=== PATIENT | female | born 1985 | race American Indian/Alaskan Native ===

== ENCOUNTER 2017-10-17 16:08 | Emergency (ER) | payer MEDICAID ==
[2017-10-17 16:45] VITALS: BP 131/82
--- NOTE | 2017-10-17 19:33 | Emergency Department Report ---
ED General Adult HPI - General Chief complaint: Dental/Oral Stated complaint: LIP PIERCING NEED TO BE REMOVED Time Seen by Provider: 10/17/17 19:28 Source: patient Mode of arrival: Ambulatory Limitations: No Limitations - History of Present Illness Initial comments: 31-year-old -I[place]ian female presents to the emergency room reporting that her lip piercing niece to be removed. Patient reports that the [place] has rotated to the end of her skin and is causing her to be in pain. Patient denies any fever or chills or nausea no vomiting. Patient is requesting forced to remove the piercing. Patient has no past medical history currently takes no medications on a daily basis and reports that the W[place]ell just started up turning upside down 1 week. -: week(s) (1) Location: face Severity scale (0 -10): 1 Consistency: constant Improves with: none Associated Symptoms: denies other symptoms - Related Data Previous Rx's Medication Instructions Recorded Last Taken Type Prednisone [Prednisone 10 mg 10 mg PO .TAPER #1 tab.ds.pk 01/02/14 Unknown Rx (6-Day Pack, 21 Tabs)] Promethazine /Codeine 5 ml PO Q6H PRN #120 udc 01/02/14 Unknown Rx [Phenergan/Codeine 6.25-10 mg/5 ml] HYDROcodone/APAP 10-325 [[place] 1 each PO Q4-6H PRN #20 tablet 10/02/14 Unknown Rx 10/325] Sulfamethoxazole/Trimethoprim 1 each PO Q12H #20 tablet 10/02/14 Unknown Rx [Bactrim Ds] metroNIDAZOLE [Flagyl] 500 mg PO Q8H #21 tablet 10/02/14 Unknown Rx Amoxicillin 500 mg PO BID #20 capsule 02/26/16 Unknown Rx Ibuprofen [Motrin] 800 mg PO Q8HR PRN #30 tablet 02/26/16 Unknown Rx Cephalexin [Keflex] 500 mg PO BID 3 Days #6 capsule 10/17/17 Unknown Rx Allergies Allergy/AdvReac Type Severity Reaction Status Date / Time No Known Allergies Allergy Unverified 01/02/14 09:30 ED Review of Systems ROS: Stated complaint: LIP PIERCING NEED TO BE REMOVED Other details as noted in HPI Skin: other (piercing malfunction) ED Past Medical Hx - Past Medical History Hx Asthma: Yes Additional medical history: Bartholin's cyst - Surgical History Past Surgical History?: No - Social History Smoking Status: Never Smoker - Medications Home Medications: Home Medications Medication Instructions Recorded Confirmed Last Taken Type Prednisone [Prednisone 10 mg 10 mg PO .TAPER #1 tab.ds.pk 01/02/14 Unknown Rx (6-Day Pack, 21 Tabs)] Promethazine /Codeine 5 ml PO Q6H PRN #120 udc 01/02/14 Unknown Rx [Phenergan/Codeine 6.25-10 mg/5 ml] HYDROcodone/APAP 10-325 [[place] 1 each PO Q4-6H PRN #20 tablet 10/02/14 Unknown Rx 10/325] Sulfamethoxazole/Trimethoprim 1 each PO Q12H #20 tablet 10/02/14 Unknown Rx [Bactrim Ds] metroNIDAZOLE [Flagyl] 500 mg PO Q8H #21 tablet 10/02/14 Unknown Rx Amoxicillin 500 mg PO BID #20 capsule 02/26/16 Unknown Rx Ibuprofen [Motrin] 800 mg PO Q8HR PRN #30 tablet 02/26/16 Unknown Rx Cephalexin [Keflex] 500 mg PO BID 3 Days #6 capsule 10/17/17 Unknown Rx ED Physical Exam - General Limitations: No Limitations General appearance: alert, in no apparent distress - Neurological Exam Neurological exam: Present: alert, oriented X3 - Psychiatric Psychiatric exam: Present: normal affect, normal mood - Skin Skin exam: Present: other (piercing to above the right lip protruding now crustacean) ED Course Vital Signs 10/17/17 16:41 Temperature 98 F Pulse Rate 80 Respiratory 16 Rate Blood Pressure 131/82 O2 Sat by Pulse 98 Oximetry - Procedure Description Procedures done: Removal of piercing to the lip. Still piercing removed from face just above the right lip with a 11 blade scalpel. The patient's face was cleaned with Betadine and numbed with lidocaine 2% with 1 mL of lidocaine. 11 blade was used to sridhar decide to remove the piercing. Apply pressure to control bleeding Band-Aid sterile applied. Patient tolerated procedure well ED Medical Decision Making - Medical Decision Making Patient has been evaluated by this provider fast track. Removal of foreign body from face Discussed the patient I'll place her on 3 days worth of antibiotics This patient she needs to continue with the little pressure Band-Aid If any signs of infection such as purulent discharge fever swelling patient is returned back to the emergency room. Critical care attestation.: If time is entered above; I have spent that time in minutes in the direct care of this critically ill patient, excluding procedure time. ED Disposition Clinical Impression: Piercing, Foreign body (FB) in soft tissue Disposition: DC-01 TO HOME OR SELFCARE Is pt being admited?: No Does the pt Need Aspirin: No Condition: Stable Additional Instructions: Please complete antibiotics as prescribed. Please continue applying pressure to the area. You can take Tylenol or Motrin for pain. Return back to the emergency room if there is any signs of infection such as spiking of a fever purulent discharge swelling. Prescriptions: Cephalexin [Keflex] 500 mg PO BID 3 Days #6 capsule Referrals: PRIMARY CARE, [Primary Care Provider] - 3-5 Days Forms: Work/School Release Form(ED)
== END 2017-10-17 19:45 | disposition home or self-care (01) ==
LOC: ED 16:08
DX: S00.551A Superficial foreign body of lip, initial encounter (principal); J45.909 Unspecified asthma, uncomplicated; X58.XXXA Exposure to other specified factors, initial encounter; Y93.89 Activity, other specified; Y92.89 Other specified places as the place of occurrence of the external cause; Y99.8 Other external cause status
CPT/HCPCS: 99282

== ENCOUNTER 2018-10-29 10:31 | Day surgery (SDC) | payer OTHER ==
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
--- NOTE | 2018-10-29 11:14 | Anesthesia Day of Surgery ---
Anesthesia Day of Surgery - Day of Surgery Patient Examined: Yes Patient H&P Reviewed: Yes Patient is NPO: Yes
[2018-10-29] MEDS ORDERED: TYLENOL PO SCH (11:15)
[2018-10-29] MEDS ORDERED: SUBLIMAZE IV PRN (11:15)
[2018-10-29] MEDS ORDERED: ZOFRAN IV PRN (11:15)
[2018-10-29] MEDS ORDERED: NEURONTIN PO NR (12:00)
[2018-10-29] MEDS ORDERED: LACTATED RINGERS 1,000 ML IV SCH (12:00)
[2018-10-29] MEDS ORDERED: ZOFRAN ONE (13:00)
[2018-10-29] MEDS ORDERED: DIPRIVAN 10 MG/ML IV ONE (13:00)
[2018-10-29] MEDS ORDERED: DECADRON ONE (13:00)
[2018-10-29] MEDS ORDERED: SUBLIMAZE ONE (13:02)
--- NOTE | 2018-10-29 13:12 | Short Stay Summary ---
Short Stay Documentation Date of service: 10/29/18 Narrative H&P: Ms Parker is a 33-year-old black female LMP 10/10/2018 who presents for marsupialization of recurrent left Bartholin cyst. She has had the same Bartholin cyst drained at least 6 times, and now desires complete removal of the Bartholin gland. - History Principal diagnosis: Left Bartholin cyst H&P: obtained from office Past Medical History: hypertension, other (Bipolar disorder; Asthma) Social history: no significant social history, single - Allergies and Medications Current Medications: Allergies STEROIDS Allergy (Uncoded 10/28/18 15:08) Swelling Home Medications Medication Instructions Recorded Confirmed Last Taken Type Albuterol Sulfate [Albuterol 0.63% 0.63 mg IH TID PRN 10/28/18 10/28/18 Unknown History NEBS] Albuterol Sulfate [Proventil Hfa] 2 puff IH PRN PRN 10/28/18 10/28/18 Unknown History Active Medications Acetaminophen (Tylenol) 650 mg PO ONCE REBECCA Stop: 10/29/18 23:00 Celecoxib (Celebrex) 200 mg PO PREOP NR Stop: 10/29/18 23:01 Fentanyl (Sublimaze) 50 mcg IV Q5MIN PRN PRN Reason: Pain , Severe (7-10) Stop: 10/29/18 23:00 Gabapentin (Neurontin) 300 mg PO PREOP NR Stop: 10/29/18 23:00 Lactated Ringer's (Lactated Ringers) 1,000 mls @ 125 mls/hr IV DIRECT REBECCA Ondansetron HCl (Zofran) 4 mg IV ONCE PRN PRN Reason: Nausea And Vomiting - Physical exam General appearance: no acute distress Integumentary: no rash HEENT: Atraumatic Lungs: Clear to auscultation Breasts: deferred Heart: Regular rate Gastrointestinal: normal Female Genitourinary: lesions (Left Bartholin cyst) Rectal Exam: deferred Extremities: no ischemia, No edema Neurological: Normal gait, Normal speech - Brief post op/procedure progress note Date of procedure: 10/29/18 Pre-op diagnosis: Recurrent left Bartholin cyst Post-op diagnosis: same Procedure: Marsupialization of left Bartholin's gland Anesthesia: MAC Findings: A 3 x 3 cm left Bartholin gland -removed in this entirety Surgeon: KUN PADILLA Estimated blood loss: 50-100ml Pathology: list (left Bartholin's gland) Specimen disposition: to lab Condition: stable - Hospital course Hospital course: Unremarkable. - Disposition Condition at discharge: Good Disposition: DC-01 TO HOME OR SELFCARE - Discharge Diagnoses (1) Cyst of left Bartholin's gland Status: Resolved Short Stay Discharge Plan Activity: no restrictions Diet: regular Wound: open to air, keep clean and dry Follow up with: PRIMARY CARE, [Primary Care Provider] - 7 Days KUN PADILLA MD [Staff Physician] - 14 Days Prescriptions: HYDROcodone/APAP 5-325 [[place] 5/325] 1 each PO Q6HR PRN #20 tablet PRN Reason: Pain DOXYCYCLINE Hyclate [Vibramycin] 100 mg PO Q12HR #14 capsule
[2018-10-29] MEDS ORDERED: NACL P/F VIAL (10 ML) 0 ML ONE (13:17)
[2018-10-29] MEDS ORDERED: XYLOCAINE 1% 20 mL ONE (13:17)
[2018-10-29] MEDS ORDERED: XYLOCAINE 1% 20 mL INFILTRATI ONE (13:49)
[2018-10-29] MEDS ORDERED: NACL 0.9% IR ONE (13:50)
[2018-10-29] MEDS ORDERED: ANCEF/STERILE WATER 2 GM/20 ML 2 GM/20 ML SYRINGE IV NR (14:00)
[2018-10-29] MEDS ORDERED: XYLOCAINE MPF 2% ONE (14:19)
[2018-10-29] MEDS ORDERED: DILAUDID ONE (14:33)
--- NOTE | 2018-10-29 14:39 | Operative Report ---
Operative Report Operative Report: Date of procedure: 10/29/2018 Pre-operative diagnosis: Recurrent Left Bartholin cyst Post-operative diagnosis: Same Procedure name(s): Marsupialization of left Bartholin gland Surgeon: Marcial Catherine MD Pipe Testing Technician: None Anesthesia: LMA by Dr. Riggs EBL: 50mls Findings: A 3 x 3 cm left Bartholin gland Procedure: After the patient was correctly identified, she was prepped and draped in the usual sterile fashion and placed in the dorsal lithotomy position. First the bladder was then treated in a straight catheter, then a 15 blade was used to incise the vaginal introitus over the left Bartholin gland. The Bartholin gland was removed using both sharp and blunt dissection, and sent to pathology. The vaginal defect was obliterated using 3-0 Vicryl suture in several layers, and the vaginal incision was re-approximated using 3-0 Vicryl suture in a running interlocking fashion. At this point the procedure was considered complete. All instruments were removed from the vagina. The patient tolerated the procedure well and was transferred to recovery room in stable condition.
[2018-10-29] MEDS ORDERED: NORCO 5/325 PO PRN (14:47)
[2018-10-29 15:35] VITALS: BP 129/74
--- NOTE | 2018-10-29 17:06 | Post Anesthesia Evaluation ---
- Post Anesthesia Evaluation Patient Participated: Yes Airway Patent: Yes Stable Respiratory Function: Yes Nausea/Vomiting: No Temp > 96.8F: Yes Pain Manageable: Yes Adequeate Hydration: Yes Anesthesia Complications: No
== END 2018-10-29 16:40 | disposition home or self-care (01) ==
LOC: OR 10:31
PROVIDERS: ATTEND Obstetrics & Gynecology
DX: N75.0 Cyst of Bartholin's gland (principal); I10 Essential (primary) hypertension; F31.9 Bipolar disorder, unspecified; J45.909 Unspecified asthma, uncomplicated; E66.9 Obesity, unspecified; F41.9 Anxiety disorder, unspecified; Z79.899 Other long term (current) drug therapy; Z88.8 Allergy status to other drugs, medicaments and biological substances; Z68.37 Body mass index [BMI] 37.0-37.9, adult; Z98.890 Other specified postprocedural states
CPT/HCPCS: 51702; 56740; 81025; 88304; 99282; J0690; J1170; J2405; J2704; J3010; J7120; J1100

== ENCOUNTER 2018-10-29 20:00 | Emergency (ER) | payer OTHER ==
--- NOTE | 2018-10-29 20:15 | Event Note ---
ED Screening Note Date of service: 10/29/18 Time: 20:14 ED Screening Note: 33 y o female presents to ed cc of vaginal pain and inability to urinate states bartholin cyst surgery at 10 am today This initial assessment/diagnostic orders/clinical plan/treatment(s) is/are subject to change based on patients health status, clinical progression and re- assessment by fellow clinical providers in the ED. Further treatment and workup at subsequent clinical providers discretion. Patient/guardian urged not to elope from the ED as their condition may be serious if not clinically assessed and managed. Initial orders include:
--- NOTE | 2018-10-29 21:06 | Emergency Department Report ---
ED Female HPI - General Chief complaint: Urogenital-Female Stated complaint: VAGINAL PAIN SURGERY TODAY Time Seen by Provider: 10/29/18 20:13 Source: patient Mode of arrival: Ambulatory Limitations: No Limitations - History of Present Illness Initial comments: 33-year-old female presents to the ED with inability to urinate. Patient underwent procedure earlier today to remove her left Bartholin's gland, after suffering from multiple Bartholin's cysts. Patient says she last urinated at approximately 10 AM this morning. States she was discharged at around 5 PM. Patient is unsure if she had a Hill catheter placed. The patient states she has been drinking fluids, feels the need to urinate, however when she goes nothing comes out. Patient also reports pain from surgical site, but has not picked up her pain medication from the pharmacy yet. FORMING PROCESS WORKER: Dr Marcial Catherine MD Complaint: other (urinary retention) -: This evening Severity: moderate Quality: aching Consistency: constant Improves with: none Worsens with: none Are you Now?: No Associated Symptoms: denies other symptoms - Related Data Home Medications Medication Instructions Recorded Confirmed Last Taken Albuterol Sulfate [Albuterol 0.63% 0.63 mg IH TID PRN 10/28/18 10/28/18 Unknown NEBS] Albuterol Sulfate [Proventil Hfa] 2 puff IH PRN PRN 10/28/18 10/28/18 Unknown Previous Rx's Medication Instructions Recorded Last Taken Type DOXYCYCLINE Hyclate [Vibramycin] 100 mg PO Q12HR #14 capsule 10/29/18 Unknown Rx HYDROcodone/APAP 5-325 [[place] 1 each PO Q6HR PRN #20 tablet 10/29/18 Unknown Rx 5/325] Allergies Allergy/AdvReac Type Severity Reaction Status Date / Time STEROIDS Allergy Swelling Uncoded 10/28/18 15:08 ED Review of Systems ROS: Stated complaint: VAGINAL PAIN SURGERY TODAY Other details as noted in HPI Comment: All other systems reviewed and negative Constitutional: denies: fever Gastrointestinal: abdominal pain Genitourinary: other (reports urinary retention) ED Past Medical Hx - Past Medical History Previous Medical History?: Yes Hx Hypertension: Yes (NO MEDS AT PRESENT) Hx Sickle Cell Disease: No Hx Asthma: Yes (INHALER/NEB. PRN) Hx HIV: No Additional medical history: Bartholin's cyst - Surgical History Past Surgical History?: Yes Additional Surgical History: Bartholin's cyst. tooth removed - Social History Smoking Status: Never Smoker Substance Use Type: None - Medications Home Medications: Home Medications Medication Instructions Recorded Confirmed Last Taken Type Albuterol Sulfate [Albuterol 0.63% 0.63 mg IH TID PRN 10/28/18 10/28/18 Unknown History NEBS] Albuterol Sulfate [Proventil Hfa] 2 puff IH PRN PRN 10/28/18 10/28/18 Unknown History DOXYCYCLINE Hyclate [Vibramycin] 100 mg PO Q12HR #14 capsule 10/29/18 Unknown Rx HYDROcodone/APAP 5-325 [[place] 1 each PO Q6HR PRN #20 tablet 10/29/18 Unknown Rx 5/325] ED Physical Exam - General Limitations: No Limitations General appearance: alert, in no apparent distress, obese - Head Head exam: Present: atraumatic, normocephalic - Eye Eye exam: Present: normal appearance - ENT ENT exam: Present: mucous membranes moist - Neck Neck exam: Present: normal inspection - Respiratory Respiratory exam: Present: normal lung sounds bilaterally. Absent: respiratory distress - Cardiovascular Cardiovascular Exam: Present: regular rate, normal rhythm - GI/Abdominal GI/Abdominal exam: Present: soft, tenderness (mild suprapubic tenderness). Absent: distended - External exam: Absent: bleeding - Extremities Exam Extremities exam: Present: normal inspection - Neurological Exam Neurological exam: Present: alert, oriented X3 - Psychiatric Psychiatric exam: Present: normal affect, normal mood - Skin Skin exam: Present: warm, dry, intact, normal color. Absent: rash ED Course Vital Signs 10/29/18 10/29/18 10/29/18 20:08 21:04 21:30 Temperature 97.7 F Pulse Rate 103 H Respiratory 20 Rate Blood Pressure 150/84 134/72 130/73 Blood Pressure [Left] O2 Sat by Pulse 99 96 96 Oximetry 10/29/18 10/29/18 10/29/18 21:53 22:00 22:30 Temperature 97.7 F Pulse Rate 105 H Respiratory 22 Rate Blood Pressure 121/71 144/73 Blood Pressure 150/84 [Left] O2 Sat by Pulse 97 100 100 Oximetry 10/29/18 10/29/18 23:00 23:30 Temperature Pulse Rate Respiratory Rate Blood Pressure 139/67 121/73 Blood Pressure [Left] O2 Sat by Pulse 100 99 Oximetry - Reevaluation(s) Reevaluation #1: 10/29/18 22:51 Hill catheter placed. 300cc urine out. Pt feeling much better - Consultations Consultation #1: 10/29/18 23:29 Spoke w/ Dr Catherine. States have pt f/u in office tomorrow or . ED Medical Decision Making - Medical Decision Making - postop urinary retention - Hill placed, 300 cc urine out - leg bag given to pt - f/u in office w/ Dr Catherine tomorrow or the next day for catheter removal - Differential Diagnosis urinary retention Critical care attestation.: If time is entered above; I have spent that time in minutes in the direct care of this critically ill patient, excluding procedure time. ED Disposition Clinical Impression: Postoperative urinary retention Disposition: DC-01 TO HOME OR SELFCARE Is pt being admited?: No Condition: Stable Instructions: Acute Urinary Retention in Women (ED), Urinary Leg Bag (GEN) Referrals: MARCIAL CATHERINE MD [Staff Physician] - 10/30/18 Time of Disposition: 23:31
[2018-10-29] MEDS ORDERED: PERCOCET 5/325 PO ONE (22:49)
[2018-10-30 00:10] VITALS: BP 121/73
== END 2018-10-29 23:40 | disposition home or self-care (01) ==
LOC: ED 20:00
DX: R33.9 Retention of urine, unspecified (principal); R10.30 Lower abdominal pain, unspecified; I10 Essential (primary) hypertension; J45.909 Unspecified asthma, uncomplicated; Z79.899 Other long term (current) drug therapy; Z88.8 Allergy status to other drugs, medicaments and biological substances
CPT/HCPCS: 51702; 99282

== ENCOUNTER 2020-05-08 10:56 | Emergency (ER) | payer OTHER ==
[2020-05-08 11:10] VITALS: BP 151/72
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
[2020-05-08 12:58] LABS: HCG Qualitative,Urine Negative (Negative)
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
== END 2020-05-08 15:06 | disposition home or self-care (01) ==
LOC: ED 10:56
DX: S16.1XXA Strain of muscle, fascia and tendon at neck level, initial encounter (principal); S39.012A Strain of muscle, fascia and tendon of lower back, initial encounter; I10 Essential (primary) hypertension; J45.909 Unspecified asthma, uncomplicated; Z98.890 Other specified postprocedural states; Z79.1 Long term (current) use of non-steroidal anti-inflammatories (NSAID); Z79.899 Other long term (current) drug therapy; Z88.8 Allergy status to other drugs, medicaments and biological substances; V49.49XA Driver injured in collision with other motor vehicles in traffic accident, initial encounter; Y93.89 Activity, other specified; Y92.410 Unspecified street and highway as the place of occurrence of the external cause; Y99.8 Other external cause status
CPT/HCPCS: 72040; 72100; 81025

== ENCOUNTER 2020-06-16 08:27 | Observation (INO) | payer OTHER ==
--- NOTE | 2020-06-16 08:48 | Event Note ---
ED Screening Note ED Screening Note: Morbidly obese F [place] female sent emerge department having a few day history of cough congestion chest pain and coryza of unknown etiology she reports on the past medical history of asthma as well and thinks that she is been feeling worse and worse as time has progressed. States she had a Covid test on Sunday which she preceived was negative since she received no phone call On examination mildly increased work of breathing with coarse breath sounds tachycardic with with heart rate ranging from the 120s to the 130s and her saturation hanging around the mid to low lower 90s. This initial assessment/diagnostic orders/clinical plan/treatment(s) is/are subject to change based on patients health status, clinical progression and re- assessment by fellow clinical providers in the ED. Further treatment and workup at subsequent clinical providers discretion. Patient/guardian urged not to elope from the ED as their condition may be serious if not clinically assessed and managed. Initial orders include: Chest x-ray and labs
[2020-06-16] MEDS ORDERED: SODIUM CHLORIDE 0.9% 1000 ML 1,000 ML IV ONE ×2 (08:56→13:24)
[2020-06-16] MEDS ORDERED: ONDANSETRON 4 MG/2 ML INJ IV ONE (08:56)
--- NOTE | 2020-06-16 08:58 | Emergency Department Report ---
ED Chest Pain HPI - General Chief Complaint: Chest Pain Stated Complaint: CHEST PAIN/ASTHMA/VOMITTING Time Seen by Provider: 06/16/20 08:54 Source: patient Mode of arrival: Ambulatory Limitations: No Limitations - History of Present Illness Initial Comments: This is a 34-year-old female who presents to the emergency department with a complaint of generalized chest pain, shortness of breath, productive cough, body aches, chills, nausea and vomiting, that started yesterday. The patient was due to have a sleep study done tomorrow, so the patient took a Covid test on Sunday and was told that if she did not hear back that it was negative, and she has not yet heard back. The patient has tried some [id number] cold/flu medication and last took it this morning around 4:30 AM. Patient says that she is coughing up thick green sputum. She has a past medical history of asthma. She denies any tobacco or illicit drug use. No recent travel or sick contacts at home. No known exposure to anyone with COVID-19. Patient said that she did have a fever with a T-max of 102 degrees last night. - Related Data Home Medications Medication Instructions Recorded Confirmed Last Taken Albuterol Sulfate [Albuterol 0.63% 0.63 mg IH TID PRN 10/28/18 10/28/18 Unknown NEBS] Albuterol Sulfate [Proventil Hfa] 2 puff IH PRN PRN 10/28/18 10/28/18 Unknown Previous Rx's Medication Instructions Recorded Last Taken Type DOXYCYCLINE Hyclate [Vibramycin] 100 mg PO Q12HR #14 capsule 10/29/18 Unknown Rx HYDROcodone/APAP 5-325 [[place] 1 each PO Q6HR PRN #20 tablet 10/29/18 Unknown Rx 5/325] Ibuprofen [Motrin] 600 mg PO Q8H PRN #21 tablet 05/08/20 Unknown Rx Allergies Allergy/AdvReac Type Severity Reaction Status Date / Time STEROIDS Allergy Swelling Uncoded 06/16/20 08:44 Heart Score - HEART Score History: Slightly suspicious EKG: Non-specific Age: < 45 Risk factors: 1-2 risk factors Troponin: < normal limit HEART Score: 2 - Critical Actions Critical Actions: 0-3 pts:0.9-1.7%risk of adverse cardiac event.Candidate for discharge ED Review of Systems ROS: Stated complaint: CHEST PAIN/ASTHMA/VOMITTING Other details as noted in HPI Comment: All other systems reviewed and negative Constitutional: chills, fever Eyes: denies: eye pain, vision change ENT: denies: ear pain, throat pain Respiratory: cough, shortness of breath Cardiovascular: chest pain. denies: palpitations Gastrointestinal: nausea, vomiting. denies: abdominal pain Genitourinary: denies: dysuria, discharge Musculoskeletal: myalgia. denies: joint swelling Skin: denies: rash, lesions Neurological: denies: numbness, paresthesias ED Past Medical Hx - Past Medical History Hx Hypertension: Yes (NO MEDS AT PRESENT) Hx Sickle Cell Disease: No Hx Asthma: Yes (INHALER/NEB. PRN) Hx HIV: No Additional medical history: Bartholin's cyst - Surgical History Additional Surgical History: Bartholin's cyst. tooth removed - Social History Smoking Status: Never Smoker Substance Use Type: None - Medications Home Medications: Home Medications Medication Instructions Recorded Confirmed Last Taken Type Albuterol Sulfate [Albuterol 0.63% 0.63 mg IH TID PRN 10/28/18 10/28/18 Unknown History NEBS] Albuterol Sulfate [Proventil Hfa] 2 puff IH PRN PRN 10/28/18 10/28/18 Unknown History DOXYCYCLINE Hyclate [Vibramycin] 100 mg PO Q12HR #14 capsule 10/29/18 Unknown Rx HYDROcodone/APAP 5-325 [[place] 1 each PO Q6HR PRN #20 tablet 10/29/18 Unknown Rx 5/325] Ibuprofen [Motrin] 600 mg PO Q8H PRN #21 tablet 05/08/20 Unknown Rx ED Physical Exam - General Limitations: No Limitations - Other Other exam information: GENERAL: The patient is well-developed well-nourished. HENT: Normocephalic. Atraumatic. Patient has moist mucous membranes. EYES: Extraocular motions are intact. Pupils equal reactive to light bilaterally. NECK: Supple. Trachea is midline. CHEST/LUNGS: Rhonchi heard bilaterally. There is tachypnea but no accessory muscle use. HEART/CARDIOVASCULAR: Regular. There is moderate tachycardia. There is no murmur. ABDOMEN: Abdomen is soft, nontender. Patient has normal bowel sounds. Morbidly obese habitus. SKIN: Skin is warm and dry. NEURO: The patient is awake, alert, and oriented. The patient is cooperative. The patient has no focal neurologic deficits. Normal speech. MUSCULOSKELETAL: There is no tenderness or deformity. There is no limitation range of motion. ED Course Vital Signs 06/16/20 06/16/20 06/16/20 08:40 09:18 11:05 Temperature 98 F 98.8 F Pulse Rate 139 H 124 H 115 H Pulse Rate [ Anterior Bilateral Throughout] Respiratory 29 H 15 21 Rate Respiratory Rate [Anterior Bilateral Throughout] Blood Pressure 188/57 Blood Pressure 156/85 133/67 [Left] O2 Sat by Pulse 94 99 98 Oximetry 06/16/20 06/16/20 06/16/20 11:18 14:01 15:14 Temperature 98.7 F Pulse Rate 116 H 117 H Pulse Rate [ 120 H Anterior Bilateral Throughout] Respiratory 31 H 20 Rate Respiratory 19 Rate [Anterior Bilateral Throughout] Blood Pressure Blood Pressure 147/87 [Left] O2 Sat by Pulse 98 100 Oximetry 06/16/20 15:19 Temperature Pulse Rate Pulse Rate [ Anterior Bilateral Throughout] Respiratory 18 Rate Respiratory Rate [Anterior Bilateral Throughout] Blood Pressure Blood Pressure [Left] O2 Sat by Pulse Oximetry LUIS F score - Luis F Score Age > 65: (0) No Aspirin use within the Past 7 Days: (0) No 3 or more CAD Risk Factors: (0) No 2 or more Angina events in past 24 hrs: (1) Yes Known CAD with more than 50% Stenosis: (0) No Elevated Cardiac Markers: (0) No ST Deviation Greater than 0.5mm: (0) No LUIS F Score: 1 ED Medical Decision Making - Lab Data Result diagrams: 06/16/20 08:49 06/16/20 08:49 Lab Results 06/16/20 06/16/20 06/16/20 Range/Units 08:49 08:49 08:49 WBC 17.0 H (4.5-11.0) K/mm3 RBC 4.68 (3.65-5.03) M/mm3 Hgb 13.6 (10.1-14.3) gm/dl Hct 40.6 (30.3-42.9) % MCV 87 (79-97) fl MCH 29 (28-32) pg MCHC 33 (30-34) % RDW 13.0 L (13.2-15.2) % Plt Count 253 (140-440) K/mm3 Lymph % (Auto) 8.1 L (13.4-35.0) % [place] % (Auto) 7.6 H (0.0-7.3) % Eos % (Auto) 0.0 (0.0-4.3) % Baso % (Auto) 0.2 (0.0-1.8) % Lymph # (Auto) 1.4 (1.2-5.4) K/mm3 [place] # (Auto) 1.3 H (0.0-0.8) K/mm3 Eos # (Auto) 0.0 (0.0-0.4) K/mm3 Baso # (Auto) 0.0 (0.0-0.1) K/mm3 Seg Neutrophils % 84.1 H (40.0-70.0) % Seg Neutrophils # 14.3 H (1.8-7.7) K/mm3 D-Dimer (0-234) ng/mlDDU Sodium 137 (137-145) mmol/L Potassium 4.2 (3.6-5.0) mmol/L Chloride 101.5 (98-107) mmol/L Carbon Dioxide 26 (22-30) mmol/L Anion Gap 14 mmol/L BUN 7 (7-17) mg/dL Creatinine 0.7 (0.6-1.2) mg/dL Estimated GFR > 60 ml/min BUN/Creatinine Ratio 10 % Glucose 127 H (65-100) mg/dL Calcium 9.3 (8.4-10.2) mg/dL Total Bilirubin 0.60 (0.1-1.2) mg/dL AST 17 (5-40) units/L ALT 18 (7-56) units/L Alkaline Phosphatase 84 (35-129) units/L Troponin T (0.00-0.029) ng/mL Total Protein 7.8 (6.3-8.2) g/dL Albumin 4.1 (3.9-5) g/dL Albumin/Globulin Ratio 1.1 % HCG, Qual Negative (Negative) Influenza A (Rapid) (Negative) Influenza B (Rapid) (Negative) 06/16/20 06/16/20 06/16/20 Range/Units 08:56 08:56 10:18 WBC (4.5-11.0) K/mm3 RBC (3.65-5.03) M/mm3 Hgb (10.1-14.3) gm/dl Hct (30.3-42.9) % MCV (79-97) fl MCH (28-32) pg MCHC (30-34) % RDW (13.2-15.2) % Plt Count (140-440) K/mm3 Lymph % (Auto) (13.4-35.0) % [place] % (Auto) (0.0-7.3) % Eos % (Auto) (0.0-4.3) % Baso % (Auto) (0.0-1.8) % Lymph # (Auto) (1.2-5.4) K/mm3 [place] # (Auto) (0.0-0.8) K/mm3 Eos # (Auto) (0.0-0.4) K/mm3 Baso # (Auto) (0.0-0.1) K/mm3 Seg Neutrophils % (40.0-70.0) % Seg Neutrophils # (1.8-7.7) K/mm3 D-Dimer 234.1 H (0-234) ng/mlDDU Sodium (137-145) mmol/L Potassium (3.6-5.0) mmol/L Chloride (98-107) mmol/L Carbon Dioxide (22-30) mmol/L Anion Gap mmol/L BUN (7-17) mg/dL Creatinine (0.6-1.2) mg/dL Estimated GFR ml/min BUN/Creatinine Ratio % Glucose (65-100) mg/dL Calcium (8.4-10.2) mg/dL Total Bilirubin (0.1-1.2) mg/dL AST (5-40) units/L ALT (7-56) units/L Alkaline Phosphatase (35-129) units/L Troponin T < 0.010 (0.00-0.029) ng/mL Total Protein (6.3-8.2) g/dL Albumin (3.9-5) g/dL Albumin/Globulin Ratio % HCG, Qual (Negative) Influenza A (Rapid) Negative (Negative) Influenza B (Rapid) Negative (Negative) 06/16/20 Range/Units 12:40 WBC (4.5-11.0) K/mm3 RBC (3.65-5.03) M/mm3 Hgb (10.1-14.3) gm/dl Hct (30.3-42.9) % MCV (79-97) fl MCH (28-32) pg MCHC (30-34) % RDW (13.2-15.2) % Plt Count (140-440) K/mm3 Lymph % (Auto) (13.4-35.0) % [place] % (Auto) (0.0-7.3) % Eos % (Auto) (0.0-4.3) % Baso % (Auto) (0.0-1.8) % Lymph # (Auto) (1.2-5.4) K/mm3 [place] # (Auto) (0.0-0.8) K/mm3 Eos # (Auto) (0.0-0.4) K/mm3 Baso # (Auto) (0.0-0.1) K/mm3 Seg Neutrophils % (40.0-70.0) % Seg Neutrophils # (1.8-7.7) K/mm3 D-Dimer (0-234) ng/mlDDU Sodium (137-145) mmol/L Potassium (3.6-5.0) mmol/L Chloride (98-107) mmol/L Carbon Dioxide (22-30) mmol/L Anion Gap mmol/L BUN (7-17) mg/dL Creatinine (0.6-1.2) mg/dL Estimated GFR ml/min BUN/Creatinine Ratio % Glucose (65-100) mg/dL Calcium (8.4-10.2) mg/dL Total Bilirubin (0.1-1.2) mg/dL AST (5-40) units/L ALT (7-56) units/L Alkaline Phosphatase (35-129) units/L Troponin T < 0.010 (0.00-0.029) ng/mL Total Protein (6.3-8.2) g/dL Albumin (3.9-5) g/dL Albumin/Globulin Ratio % HCG, Qual (Negative) Influenza A (Rapid) (Negative) Influenza B (Rapid) (Negative) - EKG Data -: EKG Interpreted by Ma EKG shows normal: sinus rhythm, axis, intervals, QRS complexes (Q waves to the septal leads), ST-T waves Rate: tachycardia (128 bpm) - EKG Data When compared to previous EKG there are: previous EKG unavailable Interpretation: other (Sinus tachycardia 128 bpm, normal axis, normal intervals, Q waves to the septal leads. No ST elevation myocardial infarction.) - Radiology Data Radiology results: image reviewed interpreted by me: Chest x-ray does not show any acute process. There are no pleural effusions, obvious pneumonia and there is no pneumothorax. No significant cardiomegaly. - Medical Decision Making This patient presents with some chest pain, shortness of breath, nausea, vomiting, chills, body aches and fever since yesterday. EKG did not have any morphology consistent with ST elevation IN or any dysrhythmia. Patient does have some moderate tachycardia and some tachypnea, even at rest. Initial chest x-ray did not show any pleural effusions, obvious pneumonia or any pneumothorax. The patient had a CT angiography of the chest, initially to rule out a pulm onary embolism, and there was no PE but the patient did have bilateral patchy infiltrates consistent with pneumonia. Patient was given IV fluid, IV antiemetics and IV analgesia. Upon reevaluation she still has tachycardia of about 120 bpm, some tachypnea at rest, and therefore the patient will be admitted to the hospital for further evaluation and treatment. Given her set of symptoms, the bilateral pneumonia, I suspect COVID-19. The patient later had some lab sent for COVID-19 inflammatory markers that did come back elevated including D-dimer, CRP and LDH. The patient is allergic to steroids so no Solu- Medrol or Decadron given. She was given IV antibiotics. The patient was accepted for admission by the hospitalist, Dr. Gallagher. Critical Care Time: No Critical care attestation.: If time is entered above; I have spent that time in minutes in the direct care of this critically ill patient, excluding procedure time. ED Disposition Clinical Impression: Suspected 2019 novel coronavirus infection Bilateral pneumonia Qualifiers: Pneumonia type: due to unspecified organism Lung location: unspecified part of lung Qualified Code(s): J18.9 - Pneumonia, unspecified organism Dyspnea Qualifiers: Dyspnea type: shortness of breath Qualified Code(s): R06.02 - Shortness of breath; R06.00 - Dyspnea, unspecified; R06.01 - Orthopnea Disposition: OP ADMIT IP TO THIS HOSP Is pt being admited?: Yes Condition: Serious Time of Disposition: 13:26
[2020-06-16 09:30] LABS: Basophils % (Auto) 0.2 % (0.0-1.8); Hematocrit 40.6 % (30.3-42.9); Hemoglobin 13.6 gm/dl (10.1-14.3); Lymphocytes # (Auto) 1.4 K/mm3 (1.2-5.4); Lymphocytes % (Auto) 8.1 % (13.4-35.0); Mean Corpuscular HGB Conc 33 % (30-34); Mean Corpuscular Volume 87 fl (79-97); Monocytes # (Auto) 1.3 K/mm3 (0.0-0.8); Monocytes % (Auto) 7.6 % (0.0-7.3); Platelet Count 253 K/mm3 (140-440); Red Blood Count 4.68 M/mm3 (3.65-5.03)
[2020-06-16 09:37] LABS: Alanine Aminotransferase 18 units/L (7-56); Albumin 4.1 g/dL (3.9-5); Blood Urea Nitrogen 7 mg/dL (7-17); Calcium 9.3 mg/dL (8.4-10.2); Hemolysis Index 5
[2020-06-16 09:52] LABS: BUN/Creatinine Ratio 10
[2020-06-16] MEDS ORDERED: IPRATROPIUM/ALBUTEROL SULFATE 3 ML AMPUL.NEB IH ONE (09:59)
--- NOTE | 2020-06-16 10:37 | XRay Report ---
CHEST 1 VIEW INDICATION / CLINICAL INFORMATION: SOB. COMPARISON: 01/02/2014 FINDINGS: SUPPORT DEVICES: None. HEART / MEDIASTINUM: No significant abnormality. LUNGS / PLEURA: No significant pulmonary or pleural abnormality. No pneumothorax. ADDITIONAL FINDINGS: No significant additional findings. IMPRESSION: No acute disease or interval change from 01/02/2014 Signer Name: Sawyer Pond MD FACR Signed: 06/16/2020 10:33 AM Workstation Name: [id number]
--- NOTE | 2020-06-16 13:12 | Cat Scan Report ---
CTA CHEST WITH IV CONTRAST INDICATION: Shortness of breath, tachycardia. TECHNIQUE: Axial CT images were obtained through the chest after injection of 100 cc Omnipaque 350 IV contrast. 3 plane MIP reconstructions were produced. All CT scans at this location are performed using CT dose reduction for ALARA by means of automated exposure control. COMPARISON: One view of the chest from earlier today. FINDINGS: PULMONARY ARTERIES: Suboptimal opacification without visualization of distinct central thromboemboli. AORTA AND ARTERIES: No acute abnormality. No significant atherosclerosis. HEART: No significant abnormality. MEDIASTINUM: No mass or lymphadenopathy. The trachea and main bronchi are patent and normal in calibe r. LUNGS: There are multifocal bibasilar consolidations with scattered ground glass opacities seen along the right upper and middle lobes. No suspicious nodule or mass. No pneumothorax or pleural effusion. ADDITIONAL FINDINGS: None. UPPER ABDOMEN: No acute findings. BONES: No significant osseous abnormality. IMPRESSION: 1. Suboptimal opacification of the pulmonary arteries without distinct central pulmonary emboli. 2. Suspected bilateral pneumonia. Please correlate with the clinical findings. Signer Name: Frankie Ross MD Signed: 06/16/2020 1:08 PM Workstation Name: [id number]
[2020-06-16] MEDS ORDERED: AZITHROMYCIN/NS 500 MG/250 ML 500 MG/250 ML BAG IV ONE (13:23)
[2020-06-16] MEDS ORDERED: cefTRIAXone/NS 1 GM/50 ML 1 GM/50 ML BAG IV ONE (13:23)
[2020-06-16 15:00] LABS: C-Reactive Protein 10.2 mg/dL (0.00-1.30)
[2020-06-16] MEDS ORDERED: MORPHINE 4 MG/1 ML INJ IV ONE ×2 (15:14→16:31)
[2020-06-16] MEDS: ACETAMINOPHEN 325 MG TAB PO PRN ×2 (16:52→22:53)
--- NOTE | 2020-06-16 22:45 | History and Physical Report ---
History of Present Illness Date of examination: 06/16/20 Date of admission: 06/16/20 13:26 Chief complaint: Shortness of breath for 1 day History of present illness: 35-year-old female with morbid obesity presents with generalized chest pain shortness of breath and cough productive of mucoid sputum. Also has body aches chills and nausea and vomiting unless artery. Patient was getting on a sleep study tomorrow. Patient intubated Covid test done Sunday and she does not know the results. Cough productive of thick greenish sputum. Patient has a history of asthma and patient is also wheezing. No known exposure to Covid 19. No fevers or chills. History is more in favor of coughing and wheezing. Chest pain secondary to coughing. Heart Score - HEART Score History: Slightly suspicious EKG: Non-specific Age: < 45 Risk factors: 1-2 risk factors Troponin: < normal limit HEART Score: 2 - Critical Actions Critical Actions: 0-3 pts:0.9-1.7%risk of adverse cardiac event.Candidate for discharge - Past Medical History --Hypertension: Yes (NO MEDS AT PRESENT) --Asthma: Yes (INHALER/NEB. PRN) Additional medical history: Bartholin's cyst - Surgical History Additional Surgical History: Bartholin's cyst. tooth removed - Social History Smoking Status: Never Smoker Substance Use Type: None - Medications Home Medications: Home Medications Medication Instructions Recorded Confirmed Last Taken Type Albuterol Sulfate [Albuterol 0.63% 0.63 mg IH TID PRN 10/28/18 10/28/18 Unknown History NEBS] Albuterol Sulfate [Proventil Hfa] 2 puff IH PRN PRN 10/28/18 10/28/18 Unknown History DOXYCYCLINE Hyclate [Vibramycin] 100 mg PO Q12HR #14 capsule 10/29/18 Unknown Rx HYDROcodone/APAP 5-325 [[place] 1 each PO Q6HR PRN #20 tablet 10/29/18 Unknown Rx 5/325] Ibuprofen [Motrin] 600 mg PO Q8H PRN #21 tablet 05/08/20 Unknown Rx Review of Systems ROS: Stated complaint: CHEST PAIN/ASTHMA/VOMITTING Other details as noted in HPI Comment: All other systems reviewed and negative Constitutional: chills, fever Eyes: denies: eye pain, vision change ENT: denies: ear pain, throat pain Respiratory: cough, shortness of breath Cardiovascular: chest pain. denies: palpitations Gastrointestinal: nausea, vomiting. denies: abdominal pain Genitourinary: denies: dysuria, discharge Musculoskeletal: myalgia. denies: joint swelling Skin: denies: rash, lesions Neurological: denies: numbness, paresthesias Medications and Allergies Allergies Allergy/AdvReac Type Severity Reaction Status Date / Time STEROIDS Allergy Swelling Uncoded 06/16/20 08:44 Home Medications Medication Instructions Recorded Confirmed Last Taken Type Albuterol Sulfate [Albuterol 0.63% 0.63 mg IH TID PRN 10/28/18 06/16/20 Unknown History NEBS] Albuterol Sulfate [Proventil Hfa] 2 puff IH PRN PRN 10/28/18 06/16/20 Unknown History DOXYCYCLINE Hyclate [Vibramycin] 100 mg PO Q12HR #14 capsule 10/29/18 06/16/20 Unknown Rx HYDROcodone/APAP 5-325 [[place] 1 each PO Q6HR PRN #20 tablet 10/29/18 06/16/20 Unknown Rx 5/325] Ibuprofen [Motrin] 600 mg PO Q8H PRN #21 tablet 05/08/20 06/16/20 Unknown Rx Active Meds: Active Medications Acetaminophen (Acetaminophen 325 Mg Tab) 650 mg PO Q4H PRN PRN Reason: Pain, Mild (1-3) Last Admin: 06/16/20 16:52 Dose: 650 mg Documented by: Exam - Constitutional Vitals: Temp Pulse Resp BP Pulse Ox 101.7 F H 119 H 24 151/85 97 06/16/20 21:12 06/16/20 21:12 06/16/20 21:12 06/16/20 21:12 06/16/20 21:12 General appearance: Present: no acute distress, well-nourished - EENT Eyes: Present: PERRL ENT: hearing intact, clear oral mucosa - Neck Neck: Present: supple, normal ROM - Respiratory Respiratory effort: normal Respiratory: bilateral: CTA - Cardiovascular Heart rate: 78 Rhythm: regular Heart Sounds: Present: S1 & S2. Absent: rub, click - Extremities Extremities: pulses symmetrical, No edema Peripheral Pulses: within normal limits - Abdominal General gastrointestinal: Present: soft, non-tender, non-distended, normal bowel sounds Female genitourinary: Present: normal - Integumentary Integumentary: Present: clear, warm, dry - Musculoskeletal Musculoskeletal: gait normal, strength equal bilaterally - Psychiatric Psychiatric: appropriate mood/affect, intact judgment & insight - Neurologic Neurologic: CNII-XII intact, moves all extremities - Allied Health Allied health notes reviewed: nursing, case management HEART Score - HEART Score EKG: Non-specific Age: < 45 Risk factors: 1-2 risk factors Troponin: Troponin T < 0.010 ng/mL (0.00-0.029) 06/16/20 12:40 Troponin: < normal limit - Critical Actions Critical Actions: 0-3 pts:0.9-1.7%risk of adverse cardiac event.Candidate for discharge Results - Labs CBC & Chem 7: 06/17/20 04:13 06/17/20 04:13 Labs: Laboratory Last Values WBC 17.0 K/mm3 (4.5-11.0) H 06/16/20 08:49 RBC 4.68 M/mm3 (3.65-5.03) 06/16/20 08:49 Hgb 13.6 gm/dl (10.1-14.3) 06/16/20 08:49 Hct 40.6 % (30.3-42.9) 06/16/20 08:49 MCV 87 fl (79-97) 06/16/20 08:49 MCH 29 pg (28-32) 06/16/20 08:49 MCHC 33 % (30-34) 06/16/20 08:49 RDW 13.0 % (13.2-15.2) L 06/16/20 08:49 Plt Count 253 K/mm3 (140-440) 06/16/20 08:49 Lymph % (Auto) 8.1 % (13.4-35.0) L 06/16/20 08:49 [place] % (Auto) 7.6 % (0.0-7.3) H 06/16/20 08:49 Eos % (Auto) 0.0 % (0.0-4.3) 06/16/20 08:49 Baso % (Auto) 0.2 % (0.0-1.8) 06/16/20 08:49 Lymph # (Auto) 1.4 K/mm3 (1.2-5.4) 06/16/20 08:49 [place] # (Auto) 1.3 K/mm3 (0.0-0.8) H 06/16/20 08:49 Eos # (Auto) 0.0 K/mm3 (0.0-0.4) 06/16/20 08:49 Baso # (Auto) 0.0 K/mm3 (0.0-0.1) 06/16/20 08:49 Seg Neutrophils % 84.1 % (40.0-70.0) H 06/16/20 08:49 Seg Neutrophils # 14.3 K/mm3 (1.8-7.7) H 06/16/20 08:49 D-Dimer 560.6 ng/mlDDU (0-234) H 06/16/20 14:06 Sodium 137 mmol/L (137-145) 06/16/20 08:49 Potassium 4.2 mmol/L (3.6-5.0) 06/16/20 08:49 Chloride 101.5 mmol/L (98-107) 06/16/20 08:49 Carbon Dioxide 26 mmol/L (22-30) 06/16/20 08:49 Anion Gap 14 mmol/L 06/16/20 08:49 BUN 7 mg/dL (7-17) 06/16/20 08:49 Creatinine 0.7 mg/dL (0.6-1.2) 06/16/20 08:49 Estimated GFR > 60 ml/min 06/16/20 08:49 BUN/Creatinine Ratio 10 % 06/16/20 08:49 Glucose 127 mg/dL (65-100) H 06/16/20 08:49 Lactic Acid 1.80 mmol/L (0.7-2.0) 06/16/20 19:34 Calcium 9.3 mg/dL (8.4-10.2) 06/16/20 08:49 Ferritin 100.8 ng/mL (10.0-200.0) 06/16/20 14:06 Total Bilirubin 0.60 mg/dL (0.1-1.2) 06/16/20 08:49 AST 17 units/L (5-40) 06/16/20 08:49 ALT 18 units/L (7-56) 06/16/20 08:49 Alkaline Phosphatase 84 units/L (35-129) 06/16/20 08:49 Lactate Dehydrogenase 284 units/L (91-180) H 06/16/20 14:06 Troponin T < 0.010 ng/mL (0.00-0.029) 06/16/20 12:40 C-Reactive Protein 10.20 mg/dL (0.00-1.30) H 06/16/20 14:06 Total Protein 7.8 g/dL (6.3-8.2) 06/16/20 08:49 Albumin 4.1 g/dL (3.9-5) 06/16/20 08:49 Albumin/Globulin Ratio 1.1 % 06/16/20 08:49 Procalcitonin 1.08 ng/mL (<0.15) 06/16/20 14:06 HCG, Qual Negative (Negative) 06/16/20 08:49 Influenza A (Rapid) Negative (Negative) 06/16/20 10:18 Influenza B (Rapid) Negative (Negative) 06/16/20 10:18 Short CBC 06/16/20 06/17/20 Range/Units 08:49 04:13 WBC 17.0 H 11.5 H (4.5-11.0) K/mm3 Hgb 13.6 11.8 (10.1-14.3) gm/dl Hct 40.6 35.6 (30.3-42.9) % Plt Count 253 211 (140-440) K/mm3 BMP 06/16/20 06/17/20 08:49 04:13 Sodium 137 136 L Potassium 4.2 3.6 Chloride 101.5 101.8 Carbon Dioxide 26 25 BUN 7 7 Creatinine 0.7 0.7 Glucose 127 H 116 H Calcium 9.3 8.7 Cardiac Enzymes 06/16/20 06/16/20 Range/Units 08:56 12:40 Troponin T < 0.010 < 0.010 (0.00-0.029) ng/mL Liver Function 06/16/20 Range/Units 08:49 Total Bilirubin 0.60 (0.1-1.2) mg/dL AST 17 (5-40) units/L ALT 18 (7-56) units/L Alkaline Phosphatase 84 (35-129) units/L Albumin 4.1 (3.9-5) g/dL Microbiology: Microbiology 06/16/20 14:06 Peripheral/Venous Blood Culture - Preliminary Culture in Progress 06/16/20 14:06 Peripheral/Venous Blood Culture - Preliminary Culture in Progress - Imaging and Cardiology EKG: report reviewed ( sinus rhythm no acute ST-T wave changes) Imaging and Cardiology: Chest x-ray IMPRESSION: No acute disease or interval change from 01/02/2014 Assessment and Plan Advance Directives: Yes VTE prophylaxis?: Chemical Plan of care discussed with patient/family: Yes - Patient Problems (1) SIRS (systemic inflammatory response syndrome) Current Visit: Yes Status: Acute Plan to address problem: Patient has high fever and tachycardia Patient on IV antibiotics (2) Viral syndrome Current Visit: Yes Status: Acute Plan to address problem: Patient has high-grade fevers ranging between 101 102 Treat as community-acquired pneumonia Also Tamiflu for possible influenza Covid unlikely Patient is saturating well on room air (3) Suspected 2019 novel coronavirus infection Current Visit: Yes Status: Acute Plan to address problem: Coronavirus PCR to be ruled out (4) Asthma with acute exacerbation Current Visit: Yes Status: Acute Plan to address problem: DuoNebs as needed On low-dose Solu-Medrol (5) Morbid obesity Current Visit: Yes Status: Chronic Plan to address problem: Patient to follow with bariatric surgery Dr. Zazueta as outpatient Counseled (6) DVT prophylaxis Current Visit: Yes Status: Acute Plan to address problem: On anticoagulation and GI prophylaxis
[2020-06-16] MEDS ORDERED: HYDROcodone/ACETAMINOPHEN 5-325 MG TAB PO PRN (22:53)
[2020-06-16] MEDS ORDERED: ALBUTEROL 8.5 GM MDI INHALATION IH PRN (22:53)
[2020-06-16] MEDS ORDERED: METOCLOPRAMIDE 10 MG/2 ML INJ IV PRN (22:55)
[2020-06-16] MEDS ORDERED: HYDROmorphone 1 MG/1 ML INJ IV PRN (22:55)
[2020-06-16] MEDS ORDERED: ACETAMINOPHEN 325 MG TAB PO PRN (22:55)
[2020-06-16] MEDS ORDERED: ONDANSETRON 4 MG/2 ML INJ IV PRN (22:55)
[2020-06-16] MEDS ORDERED: IPRATROPIUM/ALBUTEROL SULFATE 3 ML AMPUL.NEB IH PRN (22:59)
[2020-06-17 05:11] LABS: Basophils % (Auto) 0.2 % (0.0-1.8); Eosinophils % (Auto) 0.4 % (0.0-4.3); Hematocrit 35.6 % (30.3-42.9); Hemoglobin 11.8 gm/dl (10.1-14.3); Lymphocytes % (Auto) 17.2 % (13.4-35.0); Mean Corpuscular HGB Conc 33 % (30-34); Mean Corpuscular Volume 88 fl (79-97); Monocytes % (Auto) 8.9 % (0.0-7.3); Platelet Count 211 K/mm3 (140-440); Red Blood Count 4.07 M/mm3 (3.65-5.03); Red Cell Distribution Width 13.2 % (13.2-15.2)
[2020-06-17 05:35] LABS: Blood Urea Nitrogen 7 mg/dL (7-17); Calcium 8.7 mg/dL (8.4-10.2); Hemolysis Index 2
[2020-06-17 05:52] LABS: BUN/Creatinine Ratio 10
[2020-06-17] MEDS: FAMOTIDINE 20 MG TAB PO SCH ×3 (06:11→21:39)
[2020-06-17] MEDS: methylPREDNISolone Sod Succinate 40 MG/1 ML INJ IV SCH ×3 (06:11→21:38)
[2020-06-17] MEDS: cefTRIAXone/NS 2 GM/100 ML 2 GM/100 ML BAG IV SCH (09:11)
[2020-06-17] MEDS ORDERED: AZITHROMYCIN/NS 500 MG/250 ML 500 MG/250 ML BAG IV SCH (10:00)
--- NOTE | 2020-06-17 10:31 | Progress Note ---
Assessment and Plan Assessment and plan: #SIRS Has fever and tachycardia On empirical antibiotics #Suspected COVID-19 pneumonia COVID-19 test ordered Steroids Antibiotics #Acute asthma isolation Duo nebs as needed Continue Solu-Medrol 40 mg every 8 #Morbid obesity Patient to follow-up with Dr. Zazueta as outpatient #DVT prophylaxis-Lovenox History Interval history: Patient seen and examined at bedside this morning Has some shortness of breath with ambulation but is not hypoxic Solu-Medrol Hospitalist Physical - Physical exam Narrative exam: VITAL SIGNS: Reviewed. GENERAL: Awake HEAD: No signs of head trauma. EYES: Pupils are equal. Extraocular motions intact. MOUTH: Oropharynx is normal. NECK: No adenopathy, no JVD. CHEST: Bilateral wheezes CARDIAC: normal S1 and S2, without murmurs, gallops, or rubs. ABDOMEN: Soft, non tender and non distended. No rebound or guarding, and no masses palpated. Bowel Sounds normal. MUSCULOSKELETAL: No edema NEUROLOGIC EXAM: Alert and oriented x3. No focal neurologic deficits SKIN: No obvious lesions - Constitutional Vitals: Temp Pulse Resp BP Pulse Ox 99.4 F 110 H 24 141/73 100 06/17/20 04:21 06/17/20 04:21 06/17/20 04:21 06/17/20 04:21 06/17/20 04:21 HEART Score - HEART Score EKG: Non-specific Age: < 45 Risk factors: 1-2 risk factors Troponin: Troponin T < 0.010 ng/mL (0.00-0.029) 06/16/20 12:40 Troponin: < normal limit - Critical Actions Critical Actions: 0-3 pts:0.9-1.7%risk of adverse cardiac event.Candidate for discharge Results - Labs CBC & Chem 7: 06/17/20 04:13 06/17/20 04:13 Labs: Laboratory Last Values WBC 11.5 K/mm3 (4.5-11.0) H 06/17/20 04:13 RBC 4.07 M/mm3 (3.65-5.03) 06/17/20 04:13 Hgb 11.8 gm/dl (10.1-14.3) 06/17/20 04:13 Hct 35.6 % (30.3-42.9) 06/17/20 04:13 MCV 88 fl (79-97) 06/17/20 04:13 MCH 29 pg (28-32) 06/17/20 04:13 MCHC 33 % (30-34) 06/17/20 04:13 RDW 13.2 % (13.2-15.2) 06/17/20 04:13 Plt Count 211 K/mm3 (140-440) 06/17/20 04:13 Lymph % (Auto) 17.2 % (13.4-35.0) 06/17/20 04:13 Lea % (Auto) 8.9 % (0.0-7.3) H 06/17/20 04:13 Eos % (Auto) 0.4 % (0.0-4.3) 06/17/20 04:13 Baso % (Auto) 0.2 % (0.0-1.8) 06/17/20 04:13 Lymph # (Auto) 2.0 K/mm3 (1.2-5.4) 06/17/20 04:13 Lea # (Auto) 1.0 K/mm3 (0.0-0.8) H 06/17/20 04:13 Eos # (Auto) 0.0 K/mm3 (0.0-0.4) 06/17/20 04:13 Baso # (Auto) 0.0 K/mm3 (0.0-0.1) 06/17/20 04:13 Seg Neutrophils % 73.3 % (40.0-70.0) H 06/17/20 04:13 Seg Neutrophils # 8.4 K/mm3 (1.8-7.7) H 06/17/20 04:13 D-Dimer 560.6 ng/mlDDU (0-234) H 06/16/20 14:06 Sodium 136 mmol/L (137-145) L 06/17/20 04:13 Potassium 3.6 mmol/L (3.6-5.0) 06/17/20 04:13 Chloride 101.8 mmol/L (98-107) 06/17/20 04:13 Carbon Dioxide 25 mmol/L (22-30) 06/17/20 04:13 Anion Gap 13 mmol/L 06/17/20 04:13 BUN 7 mg/dL (7-17) 06/17/20 04:13 Creatinine 0.7 mg/dL (0.6-1.2) 06/17/20 04:13 Estimated GFR > 60 ml/min 06/17/20 04:13 BUN/Creatinine Ratio 10 % 06/17/20 04:13 Glucose 116 mg/dL (65-100) H 06/17/20 04:13 Hemoglobin A1c 5.8 % (4-6) 06/17/20 04:13 Lactic Acid 1.80 mmol/L (0.7-2.0) 06/16/20 19:34 Calcium 8.7 mg/dL (8.4-10.2) 06/17/20 04:13 Ferritin 100.8 ng/mL (10.0-200.0) 06/16/20 14:06 Total Bilirubin 0.60 mg/dL (0.1-1.2) 06/16/20 08:49 AST 17 units/L (5-40) 06/16/20 08:49 ALT 18 units/L (7-56) 06/16/20 08:49 Alkaline Phosphatase 84 units/L (35-129) 06/16/20 08:49 Lactate Dehydrogenase 284 units/L (91-180) H 06/16/20 14:06 Troponin T < 0.010 ng/mL (0.00-0.029) 06/16/20 12:40 C-Reactive Protein 10.20 mg/dL (0.00-1.30) H 06/16/20 14:06 Total Protein 7.8 g/dL (6.3-8.2) 06/16/20 08:49 Albumin 4.1 g/dL (3.9-5) 06/16/20 08:49 Albumin/Globulin Ratio 1.1 % 06/16/20 08:49 Procalcitonin 1.08 ng/mL (<0.15) 06/16/20 14:06 HCG, Qual Negative (Negative) 06/16/20 08:49 Influenza A (Rapid) Negative (Negative) 06/16/20 10:18 Influenza B (Rapid) Negative (Negative) 06/16/20 10:18 Microbiology: Microbiology 06/16/20 14:06 Peripheral/Venous Blood Culture - Preliminary Culture in Progress 06/16/20 14:06 Peripheral/Venous Blood Culture - Preliminary Culture in Progress [place]/IV: Voiding Method Toilet Active Medications - Current Medications Current Medications: Generic Name Dose Route Start Last Admin Trade Name Freq PRN Reason Stop Dose Admin Acetaminophen 650 mg 06/16/20 16:46 06/16/20 22:53 Acetaminophen 325 Mg Tab PO 650 mg Q4H PRN Administration Pain, Mild (1-3) Hydrocodone Bitart/Acetaminophen 1 each 06/16/20 22:53 Hydrocodone/Acetaminophen 5-325 Mg Tab PO Q6H PRN PAIN (4-6) Albuterol 2 puff 06/16/20 22:53 Albuterol 8.5 Gm Mdi Inhalation IH Q3HRT PRN Shortness Of Breath Azithromycin 500 mg 06/18/20 10:00 Azithromycin 250 Mg Tab PO 06/20/20 10:01 QDAY REBECCA Enoxaparin Sodium 40 mg 06/17/20 22:00 Enoxaparin 40 Mg/0.4 Ml Inj SUB-Q QDAY@[facility] Protocol Famotidine 20 mg 06/16/20 23:00 06/17/20 09:11 Famotidine 20 Mg Tab PO 20 mg BID REBECCA Administration Hydromorphone HCl 0.5 mg 06/16/20 22:55 Hydromorphone 1 Mg/1 Ml Inj IV Q3H PRN Pain , Severe (7-10) Azithromycin 500 mg in 250 mls @ 250 mls/hr 06/17/20 10:00 06/17/20 10:25 Zithromax/Ns IV 06/17/20 11:00 Infused Q24HR REBECCA Infusion Ceftriaxone Sodium 2 gm in 100 mls @ 200 mls/hr 06/17/20 10:00 06/17/20 09:11 Rocephin/Ns 2 Gm/100 Ml IV 200 mls/hr Q24HR REBECCA Administration Protocol Methylprednisolone Sodium Succinate 40 mg 06/16/20 23:00 06/17/20 06:11 Methylprednisolone Sod Succinate 40 Mg/1 Ml Inj IV 40 mg Q8HR REBECCA Administration Metoclopramide HCl 10 mg 06/16/20 22:55 Metoclopramide 10 Mg/2 Ml Inj IV Q6H PRN Nausea And Vomiting Ondansetron HCl 4 mg 06/16/20 22:55 Ondansetron 4 Mg/2 Ml Inj IV Q8H PRN Nausea And Vomiting Sodium Chloride 10 ml 06/17/20 10:00 06/17/20 09:11 Sodium Chloride 0.9% 10 Ml Flush Syringe IV 10 ml BID REBECCA Administration Sodium Chloride 10 ml 06/16/20 22:55 Sodium Chloride 0.9% 10 Ml Flush Syringe IV PRN PRN LINE FLUSH
[2020-06-17] MEDS ORDERED: ENOXAPARIN 40 MG/0.4 ML INJ SUB-Q SCH (22:00)
[2020-06-17] MEDS ORDERED: ALBUTEROL 2.5 MG/3 ML NEBU IH PRN (22:48)
[2020-06-18] MEDS: methylPREDNISolone Sod Succinate 40 MG/1 ML INJ IV SCH ×2 (06:32→13:11)
--- NOTE | 2020-06-18 08:27 | Discharge Summary ---
Providers - Providers Date of Admission: 06/16/20 13:26 Date of discharge: 06/18/20 Attending physician: SHARRON HARRINGTON Primary care physician: BRITTANY RESENDIZ MD Hospitalization Condition: Serious Hospital course: 35-year-old female with a medical history of asthma and morbid obesity presents with generalized chest pain, shortness of breath and cough productive of mucoid sputum. Also has body aches chills and nausea and vomiting. Patient was getting on a sleep study tomorrow. She had a preprocedure COVID-19 test done which was negative. Her cough is productive of thick greenish sputum. She also has associated wheezing. No known exposure to Covid 19. No fevers or chills. In the ER, she was noted to be wheezing and a chest x-ray performed showed bilat eral infiltrates Patient was admitted for further evaluation. Patient was started on antibiotics and steroids per acute asthma exacerbation. Patient's COVID-19 test came out negative. Her symptoms have improved. She ambulated and there was no hypoxia. Patient will be discharged on prednisone to follow-up with her PCP. She has been advised to return to the hospital if she starts having worsening symptoms. She agrees with plan Disposition: DC- TO HOME OR SELFCARE Core Measure Documentation - Palliative Care Palliative Care/ Comfort Measures: Not Applicable - Core Measures Any of the following diagnoses?: none Exam - Physical Exam Narrative exam: VITAL SIGNS: Reviewed. GENERAL: Awake HEAD: No signs of head trauma. EYES: Pupils are equal. Extraocular motions intact. MOUTH: Oropharynx is normal. NECK: No adenopathy, no JVD. CHEST: Improved wheezes CARDIAC: normal S1 and S2, without murmurs, gallops, or rubs. ABDOMEN: Soft, non tender and non distended. No rebound or guarding, and no masses palpated. Bowel Sounds normal. MUSCULOSKELETAL: No edema NEUROLOGIC EXAM: Alert and oriented x3. No focal neurologic deficits SKIN: No obvious lesions - Constitutional Vitals: Temp Pulse Resp BP Pulse Ox 98.8 F 106 H 18 126/69 97 06/17/20 21:29 06/17/20 23:11 06/17/20 23:11 06/17/20 21:29 06/17/20 21:29 Plan Activity: no restrictions Additional Instructions: Continue steroids as ordered. Continue antibiotics as ordered Follow up with: PRIMARY CAREMD [Primary Care Provider] - 3-5 Days Prescriptions: Cefpodoxime Proxetil 200 mg PO Q12H #14 tablet predniSONE [Deltasone] 40 mg PO QDAY #10 tab guaiFENesin ER [Mucinex ER] 600 mg PO Q12H #10 tablet.er Azithromycin [Zithromax TAB] 250 mg PO QDAY #3 tablet
[2020-06-18] MEDS: FAMOTIDINE 20 MG TAB PO SCH (09:49)
[2020-06-18] MEDS: cefTRIAXone/NS 2 GM/100 ML 2 GM/100 ML BAG IV SCH (09:49)
[2020-06-18] MEDS ORDERED: AZITHROMYCIN 250 MG TAB PO SCH (10:00)
[2020-06-18] MEDS ORDERED: POLYETHYLENE GLYCOL 3350 17 GM POWDER PO SCH (10:00)
[2020-06-18 17:12] VITALS: BP 155/87
== END 2020-06-18 18:06 | disposition home or self-care (01) ==
LOC: ED 08:27 → 3A 13:26 → 3B-SURG 06-17 22:00
PROVIDERS: ADMIT Internal Medicine; ATTEND Internal Medicine
DX: J45.901 Unspecified asthma with (acute) exacerbation (principal); Z20.822 Contact with and (suspected) exposure to COVID-19; R65.10 Systemic inflammatory response syndrome (SIRS) of non-infectious origin without acute organ dysfunction; J18.9 Pneumonia, unspecified organism; B34.9 Viral infection, unspecified; I10 Essential (primary) hypertension; E66.01 Morbid (severe) obesity due to excess calories; R06.00 Dyspnea, unspecified; Z98.890 Other specified postprocedural states; Z68.42 Body mass index [BMI] 45.0-49.9, adult
CPT/HCPCS: 36415; 71045; 71275; 80048; 80053; 82140; 82728; 83036; 83615; 84145; 84484; 84703; 85025; 85379; 86140; 87040; 87400; 93005; 94640; 94644; 96361; 96365; 96366; 96367; 96368; 96372; 96375; 96376; 99285; G0378; J0456; J0696; J1170; J1650; J2270; J2405; J2920; J7030; Q9967; U0003

== ENCOUNTER 2020-12-13 13:00 | Emergency (ER) | payer OTHER ==
--- NOTE | 2020-12-13 13:28 | Emergency Department Report ---
Blank Doc - Documentation Documentation: 35-year-old female that presents with chest pain and shortness of breath. Tachycardia and febrile in triage. 1- This is a initial triage assessment/medical screening only. Full assessment and work-up will be completed once the patient is in proper hospital gown, ED bed and in a private room setting. This initial assessment/diagnostic orders/clinical plan/ treatment(s) is/are subject to change based on pt's health status, clinical progression and re-assessment by fellow clinical providers in the ED. Further treatment and workup at subsequent clinical providers discretion. Patient/guardians urged not to elope from ED as their condition may be serious if not clinically assessed and managed. 2-cardiac work-up
[2020-12-13 13:29] VITALS: BP 146/100
[2020-12-13 14:27] LABS: Hematocrit 41.7 % (30.3-42.9); Hemoglobin 13.8 gm/dl (10.1-14.3); Mean Corpuscular HGB Conc 33 % (30-34); Mean Corpuscular Volume 86 fl (79-97); Platelet Count 276 K/mm3 (140-440); Red Blood Count 4.85 M/mm3 (3.65-5.03); Red Cell Distribution Width 13.7 % (13.2-15.2)
[2020-12-13 14:39] LABS: Alanine Aminotransferase 30 units/L (7-56); Albumin 4.2 g/dL (3.9-5); Blood Urea Nitrogen 10 mg/dL (7-17); Calcium 9.6 mg/dL (8.4-10.2); Hemolysis Index 6
[2020-12-13 14:42] LABS: BUN/Creatinine Ratio 14
--- NOTE | 2020-12-13 15:07 | XRay Report ---
XR chest routine 2V INDICATION / CLINICAL INFORMATION: Chest Pain COMPARISON: 06/16/2020 FINDINGS: SUPPORT DEVICES: None. HEART / MEDIASTINUM: No significant abnormality. LUNGS / PLEURA: Lungs are clear. Costophrenic sulci are sharp. No pneumothorax. ADDITIONAL FINDINGS: No significant additional findings. IMPRESSION: 1. No acute findings. Signer Name: Jori Mcgraw MD Signed: 12/13/2020 3:03 PM Workstation Name: [id number]
[2020-12-13 16:06] LABS: INR 0.94 (0.87-1.13)
[2020-12-13 16:07] LABS: Partial Thromboplastin Time 33.2 Sec. (24.2-36.6)
[2020-12-13 16:36] LABS: RBC Morphology Normal; Total Cells Counted 100
[2020-12-13] MEDS ORDERED: ACETAMINOPHEN 500 MG TAB PO ONE (16:41)
--- NOTE | 2020-12-13 22:43 | Emergency Department Report ---
ED Chest Pain HPI - General Chief Complaint: Chest Pain Stated Complaint: CP/HEAD PAIN PUI?: Yes Time Seen by Provider: 12/13/20 13:27 Source: patient Mode of arrival: Ambulatory Limitations: No Limitations - History of Present Illness Initial Comments: Chief complaint: Fever headache sore throat body aches HPI: This is a 35-year-old female with a history of asthma who presents with fever headache sore throat cough for the past several days. She received first dose of Pfizer vaccine December 05. Symptoms improved with Tylenol. She denies loss of taste or smell. She does have nausea and vomiting. She also had chest fullness. No shortness of breath. She has a history of bilateral pneumonia. MD Complaint: chest pain -: Gradual, days(s) (Several days) Severity: mild Severity scale (0 -10): 0 Quality: tightness Consistency: now resolved Improves With: nothing Worsens With: nothing re: nausea, vomting, other (Cough fever sore throat) - Related Data Previous Rx's Medication Instructions Recorded Last Taken Type HYDROcodone/APAP 5-325 [Stow 1 each PO Q6HR PRN #20 tablet 10/29/18 Unknown Rx 5/325] Ibuprofen [Motrin] 600 mg PO Q8H PRN #21 tablet 05/08/20 Unknown Rx Azithromycin [Zithromax TAB] 250 mg PO QDAY #3 tablet 06/18/20 Unknown Rx Cefpodoxime Proxetil 200 mg PO Q12H #14 tablet 06/18/20 Unknown Rx guaiFENesin ER [Mucinex ER] 600 mg PO Q12H #10 tablet.er 06/18/20 Unknown Rx predniSONE [Deltasone] 40 mg PO QDAY #10 tab 06/18/20 Unknown Rx Allergies Allergy/AdvReac Type Severity Reaction Status Date / Time No Known Drug Allergies Allergy Unknown Verified 12/13/20 13:19 Heart Score - HEART Score History: Slightly suspicious EKG: Normal Age: < 45 Risk factors: No known risk factors Troponin: < normal limit HEART Score: 0 - EKG Read Time Time EKG Completed: 00:00 EKG Read Time: 00:00 ED Review of Systems ROS: Stated complaint: CP/HEAD PAIN Other details as noted in HPI Comment: All other systems reviewed and negative Constitutional: chills, fever, malaise ENT: throat pain Respiratory: cough, shortness of breath Cardiovascular: chest pain Gastrointestinal: nausea, vomiting Neurological: headache ED Past Medical Hx - Past Medical History Previous Medical History?: Yes Hx Hypertension: Yes (NO MEDS AT PRESENT) Hx Sickle Cell Disease: No Hx Asthma: Yes (INHALER/NEB. PRN) Hx HIV: No Additional medical history: Bartholin's cyst/ PNEUMONIA - Surgical History Past Surgical History?: Yes Additional Surgical History: Bartholin's cyst. tooth removed - Social History Smoking Status: Never Smoker Substance Use Type: None - Medications Home Medications: Home Medications Medication Instructions Recorded Confirmed Last Taken Type HYDROcodone/APAP 5-325 [Stow 1 each PO Q6HR PRN #20 tablet 10/29/18 06/16/20 Unknown Rx 5/325] Ibuprofen [Motrin] 600 mg PO Q8H PRN #21 tablet 05/08/20 06/16/20 Unknown Rx Azithromycin [Zithromax TAB] 250 mg PO QDAY #3 tablet 06/18/20 Unknown Rx Cefpodoxime Proxetil 200 mg PO Q12H #14 tablet 06/18/20 Unknown Rx guaiFENesin ER [Mucinex ER] 600 mg PO Q12H #10 tablet.er 06/18/20 Unknown Rx predniSONE [Deltasone] 40 mg PO QDAY #10 tab 06/18/20 Unknown Rx ED Physical Exam - General Limitations: No Limitations General appearance: alert, in no apparent distress, other (Steady normal gait steady normal gait appears comfortable speaking full sentences) - Head Head exam: Present: atraumatic, normocephalic - Eye Eye exam: Present: normal appearance - ENT ENT exam: Present: mucous membranes moist - Neck Neck exam: Present: normal inspection - Respiratory Respiratory exam: Present: normal lung sounds bilaterally. Absent: respiratory distress, wheezes, rales, rhonchi, chest wall tenderness, accessory muscle use, decreased breath sounds, prolonged expiratory - Cardiovascular Cardiovascular Exam: Present: regular rate, normal rhythm. Absent: systolic murmur, diastolic murmur, rubs, gallop - GI/Abdominal GI/Abdominal exam: Present: soft, normal bowel sounds. Absent: distended, tenderness, guarding, rebound - Extremities Exam Extremities exam: Present: normal inspection - Neurological Exam Neurological exam: Present: alert, oriented X3 - Psychiatric Psychiatric exam: Present: normal affect, normal mood - Skin Skin exam: Present: warm, dry, intact, normal color. Absent: rash ED Course Vital Signs 12/13/20 13:28 Temperature 100.4 F H Pulse Rate 106 H Respiratory 22 Rate Blood Pressure 146/100 O2 Sat by Pulse 94 Oximetry BRYAN score - Bryan Score Age > 65: (0) No Aspirin use within the Past 7 Days: (0) No 3 or more CAD Risk Factors: (0) No 2 or more Angina events in past 24 hrs: (1) Yes Known CAD with more than 50% Stenosis: (0) No Elevated Cardiac Markers: (0) No ST Deviation Greater than 0.5mm: (0) No BRYAN Score: 1 ED Medical Decision Making - Lab Data Result diagrams: 12/13/20 14:01 12/13/20 14:01 Laboratory Last Values WBC 3.9 K/mm3 (4.5-11.0) L 12/13/20 14:01 RBC 4.85 M/mm3 (3.65-5.03) 12/13/20 14:01 Hgb 13.8 gm/dl (10.1-14.3) 12/13/20 14:01 Hct 41.7 % (30.3-42.9) 12/13/20 14:01 MCV 86 fl (79-97) 12/13/20 14:01 MCH 28 pg (28-32) 12/13/20 14:01 MCHC 33 % (30-34) 12/13/20 14:01 RDW 13.7 % (13.2-15.2) 12/13/20 14:01 Plt Count 276 K/mm3 (140-440) 12/13/20 14:01 [place] % (Auto) [employer] 12/13/20 14:01 Add Manual Diff Complete 12/13/20 14:01 Total Counted 100 12/13/20 14:01 Seg Neuts % (Manual) 56.0 % (40.0-70.0) 12/13/20 14:01 Lymphocytes % (Manual) 26.0 % (13.4-35.0) 12/13/20 14:01 Monocytes % (Manual) 17.0 % (0.0-7.3) H 12/13/20 14:01 Eosinophils % (Manual) 1.0 % (0.0-4.3) 12/13/20 14:01 Nucleated RBC % Not Reportable 12/13/20 14:01 Seg Neutrophils # Man 2.2 K/mm3 (1.8-7.7) 12/13/20 14:01 Band Neutrophils # 0.0 K/mm3 12/13/20 14:01 Lymphocytes # (Manual) 1.0 K/mm3 (1.2-5.4) L 12/13/20 14:01 Abs React Lymphs (Man) 0.0 K/mm3 12/13/20 14:01 Monocytes # (Manual) 0.7 K/mm3 (0.0-0.8) 12/13/20 14:01 Eosinophils # (Manual) 0.0 K/mm3 (0.0-0.4) 12/13/20 14:01 Basophils # (Manual) 0.0 K/mm3 (0.0-0.1) 12/13/20 14:01 Metamyelocytes # 0.0 K/mm3 12/13/20 14:01 Myelocytes # 0.0 K/mm3 12/13/20 14:01 Promyelocytes # 0.0 K/mm3 12/13/20 14:01 Blast Cells # 0.0 K/mm3 12/13/20 14:01 WBC Morphology Not Reportable 12/13/20 14:01 Hypersegmented Neuts Not Reportable 12/13/20 14:01 Hyposegmented Neuts Not Reportable 12/13/20 14:01 Hypogranular Neuts Not Reportable 12/13/20 14:01 Smudge Cells Not Reportable 12/13/20 14:01 Toxic Granulation Not Reportable 12/13/20 14:01 Toxic Vacuolation Not Reportable 12/13/20 14:01 Dohle Bodies Not Reportable 12/13/20 14:01 Pelger-Huet Anomaly Not Reportable 12/13/20 14:01 Paulette Rods Not Reportable 12/13/20 14:01 Platelet Estimate Not Reportable 12/13/20 14:01 Clumped Platelets Not Reportable 12/13/20 14:01 Plt Clumps, EDTA Not Reportable 12/13/20 14:01 Large Platelets Not Reportable 12/13/20 14:01 Giant Platelets Not Reportable 12/13/20 14:01 Platelet Satelliting Not Reportable 12/13/20 14:01 Plt Morphology Comment Not Reportable 12/13/20 14:01 RBC Morphology Normal 12/13/20 14:01 Dimorphic RBCs Not Reportable 12/13/20 14:01 Polychromasia Not Reportable 12/13/20 14:01 Hypochromasia Not Reportable 12/13/20 14:01 Poikilocytosis Not Reportable 12/13/20 14:01 Anisocytosis Not Reportable 12/13/20 14:01 Microcytosis Not Reportable 12/13/20 14:01 Macrocytosis Not Reportable 12/13/20 14:01 Spherocytes Not Reportable 12/13/20 14:01 Pappenheimer Bodies Not Reportable 12/13/20 14:01 Sickle Cells Not Reportable 12/13/20 14:01 Target Cells Not Reportable 12/13/20 14:01 Tear Drop Cells Not Reportable 12/13/20 14:01 Ovalocytes Not Reportable 12/13/20 14:01 Helmet Cells Not Reportable 12/13/20 14:01 [place] Bodies Not Reportable 12/13/20 14:01 [place] Rings Not Reportable 12/13/20 14:01 [place] Cells Not Reportable 12/13/20 14:01 Bite Cells Not Reportable 12/13/20 14:01 Crenated Cell Not Reportable 12/13/20 14:01 Elliptocytes Not Reportable 12/13/20 14:01 Acanthocytes (Spur) Not Reportable 12/13/20 14:01 Rouleaux Not Reportable 12/13/20 14:01 Hemoglobin C Crystals Not Reportable 12/13/20 14:01 Schistocytes Not Reportable 12/13/20 14:01 Malaria parasites Not Reportable 12/13/20 14:01 Song Bodies Not Reportable 12/13/20 14:01 Hem Pathologist Commnt No 12/13/20 14:01 PT 13.1 Sec. (12.2-14.9) 12/13/20 14:01 INR 0.94 (0.87-1.13) 12/13/20 14:01 APTT 33.2 Sec. (24.2-36.6) 12/13/20 14:01 Sodium 137 mmol/L (137-145) 12/13/20 14:01 Potassium 3.8 mmol/L (3.6-5.0) 12/13/20 14:01 Chloride 102.2 mmol/L (98-107) 12/13/20 14:01 Carbon Dioxide 25 mmol/L (22-30) 12/13/20 14:01 Anion Gap 14 mmol/L 12/13/20 14:01 BUN 10 mg/dL (7-17) 12/13/20 14:01 Creatinine 0.7 mg/dL (0.6-1.2) 12/13/20 14:01 Estimated GFR > 60 ml/min 12/13/20 14:01 BUN/Creatinine Ratio 14 % 12/13/20 14:01 Glucose 85 mg/dL (65-100) 12/13/20 14:01 Calcium 9.6 mg/dL (8.4-10.2) 12/13/20 14:01 Total Bilirubin 0.30 mg/dL (0.1-1.2) 12/13/20 14:01 AST 38 units/L (5-40) 12/13/20 14:01 ALT 30 units/L (7-56) 12/13/20 14:01 Alkaline Phosphatase 95 units/L (35-129) 12/13/20 14:01 Troponin T < 0.010 ng/mL (0.00-0.029) 12/13/20 18:55 Total Protein 7.7 g/dL (6.3-8.2) 12/13/20 14:01 Albumin 4.2 g/dL (3.9-5) 12/13/20 14:01 Albumin/Globulin Ratio 1.2 % 12/13/20 14:01 HCG, Qual Negative (Negative) 12/13/20 14:01 - EKG Data -: EKG Interpreted by Pr EKG shows normal: sinus rhythm, axis, intervals, QRS complexes, ST-T waves Rate: tachycardia - EKG Data 12/13/20 22:41 EKG@1320 EKG interpreted by md Sinus tachycardia rate 110 bpm normal axis normal intervals no ST sign ischemia large P waves - Radiology Data Radiology results: report reviewed Patient Name: OLESYA COLEMAN Gender: Female Date of : 1985 Referring Provider: MINOO MEEK Organization: [facility] Accession Number: [id number] Requested Date: December 13, 2020 13:27 Report Status: Final Requested Procedure: 1 Procedure Description: XR chest routine 2V Modality: XR Findings Reporting MD: Jori Mcgraw Dictation Time: December 13, 2020 14:03 Senior C Software Developer: Not available J[employer] Date: XR chest routine 2V INDICATION / CLINICAL INFORMATION: Chest Pain COMPARISON: 06/16/2020 FINDINGS: SUPPORT DEVICES: None. HEART / MEDIASTINUM: No significant abnormality. LUNGS / PLEURA: Lungs are clear. Costophrenic sulci are sharp. No pneumothorax. ADDITIONAL FINDINGS: No significant additional findings. IMPRESSION: 1. No acute findings. Signer Name: Jori Mcgraw MD Signed: 12/13/2020 2:03 PM Workstation Name: [id number] - Medical Decision Making This is 35-year-old female history of asthma presents with fever, headache, sore throat, body aches chest pain shortness of breath cough. Repeat oxygen saturation 100% on room air upon my personal examination. Suspected Covid. Patient understands to obtain outside Covid test. Critical care attestation.: If time is entered above; I have spent that time in minutes in the direct care of this critically ill patient, excluding procedure time. ED Disposition Clinical Impression: Suspected COVID-19 virus infection, Viral syndrome Disposition: HOME / SELF CARE / HOMELESS Is pt being admited?: No Does the pt Need Aspirin: No Condition: Stable Instructions: Viral Illness, Adult Referrals: MICHELLE JOHNSON MD [Primary Care Provider] - 3-5 Days
--- NOTE | 2020-12-14 10:16 | Electrocardiograph Report ---
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
== END 2020-12-13 22:45 | disposition home or self-care (01) ==
LOC: ED 13:00
DX: B34.9 Viral infection, unspecified (principal); R50.9 Fever, unspecified; Z20.822 Contact with and (suspected) exposure to COVID-19; J45.909 Unspecified asthma, uncomplicated; I10 Essential (primary) hypertension
CPT/HCPCS: 36415; 71046; 80053; 84484; 84703; 85007; 85025; 85610; 85730; 93005; 99283